=== PATIENT | male | born 1975 | race Caucasian/White ===

== ENCOUNTER 2023-03-24 11:05 | Emergency (ER) | payer OTHER, SELFPAY ==
--- NOTE | 2023-03-24 11:07 | HMH.EDGENADL ---
Discharge Plan Disposition Patient Disposition: Home, Self-Care Prescriptions Prescriptions: New amoxicillin-pot clavulanate 875-125 mg tablet 1 tab PO BID 10 Days Qty: 20 0RF Referrals Follow up/Referrals: Dre Wade MD [Primary Care Provider] - See instructions Activity Restrictions/Add. Instructions Additional Instructions/Restrictions: It imperative that you follow-up with a dentist because you have multiple teeth that need to be extracted that are the source of your infections. Clinical Impressions Clinical Impression: Infected dental caries, Cellulitis of face Discharge ED Provider: Ronaldo Murphy General Adult HPI General Chief complaint: Dental/Oral Stated complaint: Mouth pain w/inflammation Time Seen by Provider: 03/24/23 11:07 History of Present Illness HPI narrative: 47-year-old male presenting with dental pain and facial swelling this is been going on for a few days no fevers or chills patient has known dental caries that are extensive and he has not followed up with dentist and does not yet have a dental appointment. Related Data Previous Rx's Medication Instructions Recorded amoxicillin 875 mg-potassium 1 tab PO BID 10 days #20 tabs 03/24/23 clavulanate 125 mg tablet Allergies Allergy/AdvReac Type Severity Reaction Status Date / Time No Known Allergies Allergy Unverified 10/06/17 14:[address] [facility] Disclaimer: The information contained in this section may have been updated after the patient was seen, as this information can be updated by other users. Social History Smoking Status: Never smoker alcohol intake: never current occupational status: other Travel in the last 8 weeks: None ROS Obtained: Yes All systems reviewed & no additional complaints except as documented Physical Exam General General appearance: alert ENT ENT exam: Present other (Extensive dental caries and necrosis with some overlying cellulitis no obvious abscess there is some soft tissue swelling on the maxillary area of the soft tissue surrounding this facial area) Respiratory Respiratory exam: Present normal lung sounds bilaterally; Absent respiratory distress Cardiovascular Cardiovascular exam: Present regular rate; Absent tachycardia Neurological Exam Neurological exam: Present alert and oriented X3 Medical Decision Making Srinath Inquiry Pt receiving controlled substance: No Vital Signs: 03/24/23 11:16 Temperature 97.8 F Temperature Source Oral Pulse Rate [Left Radial] 95 H Respiratory Rate 16 Blood Pressure [Right Arm] 150/99 H Blood Pressure Mean [Right Arm] 116 02 Sat by Pulse Oximetry 99 Oxygen Delivery Method Room Air Orders (Tests/Meds): ED MEDICATIONS Discontinued Medications Generic Name Dose Route Start Last Admin Trade Name Alpesh PRN Reason Stop Dose Admin Amoxicillin/Clavulanate Potassium 2 each 03/24/23 11:24 Amoxicillin/Pot Clavulan 500mg Tablet PO 03/24/23 11:25 ONCE ONE Lactated Ringer's 1,000 mls @ 999 mls/hr 03/24/23 11:30 Lactated Ringer's 1000 Ml Bag IV 03/24/23 12:30 .Q1H1M [facility] Medical Decision Narrative: 47-year-old male presenting with dental caries that are extensive needing multiple teeth extracted in the near future likely has a periapical abscess but I cannot get a Panorex here we will make a clinical diagnosis of a infection likely has. We will abscess with surrounding facial cellulitis clinically first dose of Augmentin given here and a prescription has been prescribed to his pharmacy has been advised to strongly follow-up with his dentist as he needs extensive dental extractions he understands this and he was discharged in stable condition. Critical Care Time Critical Care Time Critical Care Time: No Attestation: On , the high probability of a clinically significant, sudden or life threatening deterioration of the following system(s) required my full and direct attention, intervention and personal anali
[2023-03-24 11:16] VITALS: BP 150/99; PULSE 95; RESP 16; TEMP 36.6; O2SAT 99; BMI 22.7
[2023-03-24 11:34] VITALS: BP 144/99; PULSE 97; RESP 20; TEMP 36.6; O2SAT 99
== END 2023-03-24 11:34 | disposition home or self-care (01) ==
PROVIDERS: Emergency Provider Student in an Organized Health Care Education/Training Program; PCP Family Medicine
DX: L03.211 Cellulitis of face (principal)
CPT/HCPCS: 96360; 99284

== ENCOUNTER 2023-06-02 15:23 | Observation (INO) | payer MEDICARE, OTHER, SELFPAY ==
[2023-06-02] VITALS (9 sets, daily range): BP systolic 105–142; BP diastolic 56–87; PULSE 60–83; RESP 14–20; TEMP 36.5–36.9; O2SAT 96–100; BMI 21.1; BMI 19.9
--- NOTE | 2023-06-02 16:06 | CT_ITS ---
PROCEDURE INFORMATION: Exam: CT Right Upper Extremity With Contrast, Forearm Exam date and time: 06/02/2023 5:06 PM Age: 47 years old Clinical indication: Other: Abscess; Additional info: Dorsal abscess, diffuse edema and erthema, abscess in forearm TECHNIQUE: Imaging protocol: Computed tomography of the right upper extremity with contrast. Exam focused on the forearm. Radiation optimization: All CT scans at this facility use at least one of these dose optimization techniques: automated exposure control; mA and/or kV adjustment per patient size (includes targeted exams where dose is matched to clinical indication); or iterative reconstruction. Contrast material: ISOVUE; Contrast volume: 75 ml; Contrast route: IV; REPORTING DATA: Count of CT and Cardiac NM exams in prior 12 months: This patient has received 0 known CTs and 0 known cardiac nuclear medicine studies in the 12 months prior to the current study. COMPARISON: No relevant prior studies available. FINDINGS: Bones/joints: Normal. No acute fracture or dislocation. Soft tissues: Irregularly marginated 3.9 x 2.2 x 1.4 cm area of probable phlegmon and developing abscess radial aspect of the distal forearm with surrounding cellulitis. No soft tissue gas. Diffuse edematous infiltration subcutaneous fat elsewhere in the forearm extending into the wrist and hand. Some of this may be passive edema and some may be additional cellulitis. IMPRESSION: 1. Irregularly marginated 3.9 x 2.2 x 1.4 cm area of probable phlegmon and developing abscess centered in subcutaneous fat radial aspect of the distal forearm with surrounding cellulitis. No soft tissue gas. 2. Diffuse edematous infiltration subcutaneous fat elsewhere in the forearm extending into the wrist and hand. Some of this may be passive edema and some may be additional cellulitis.
--- NOTE | 2023-06-02 16:13 | PC.NURSE ---
[facility] pharmacy paged for Vanc dosing. They will put vanc order in for 1gm IV once.
--- NOTE | 2023-06-02 16:27 | ED_ITS ---
Discharge Plan Disposition Patient Disposition: Admitted Condition: Good Discharge ED Provider: Jas Lobato General Adult HPI General Chief complaint: Skin/Abscess/Foreign Body Stated complaint: right hand bite, bleeding and has puss coming out Time Seen by Provider: 06/02/23 16:00 Mode of Arrival: Ambulatory Source of Information: Patient Limitations: No Limitations Description of Symptoms (Recalled from ER Triage Doc. by RN): Pt c/o pain and drainage from right forearm wound that started a couple days ago . Right distal forearm has notable errythemia and clear drainage noted. No streaking present. Pt denies fevers, soa, chest pain, dizziness, chills, or N/V/D. History of Present Illness HPI narrative: Patient is a 47-year-old male with past medical history of IV drug use (last use 1 week ago) who presents emergency department for evaluation of right arm swelling. History is obtained by patient at bedside. Patient states he got bit by a spider on his forearm, he normally injections before meals and is adamant that he did not inject at the site. Over the last 48 to 72 hours he has had pr ogressive swelling, spontaneous rupture of the swelling on his forearm. However he has diffuse swelling between his elbow and wrist, overlying erythema. He also has a past medical history of previous CVA with right hand contracture. He states that his right hand mobility is at his baseline. Denies chest pain, shortness of breath, other acute complaints at this time. Related Data Home Medications Medication Instructions Recorded Confirmed No Known Home Medications 06/02/23 06/02/23 Allergies Allergy/AdvReac Type Severity Reaction Status Date / Time No Known Allergies Allergy Unverified 10/06/17 14:04 [facility] Disclaimer: The information contained in this section may have been updated after the patient was seen, as this information can be updated by other users. Medical History (Updated 06/02/23 @ 22:38 by Marc Dangelo APRN) CVA (cerebral vascular accident) Social History (Updated 03/24/23 @ 11:28 by Ronaldo Murphy MD) Smoking Status: Unknown if ever smoked alcohol intake: never current occupational status: other Travel in the last 8 weeks: None ROS Obtained: Yes Systems reviewed as appropriate & no additional complaints except as documented Physical Exam General General appearance: alert and in no apparent distress Head Head exam: atraumatic and normocephalic Eye Eye exam: Present PERRL and EOMI ENT ENT exam: Present mucous membranes moist Neck Neck exam: Present normal inspection Chest Chest inspection: Present normal inspection and symmetric chest wall rise Respiratory Respiratory exam: Present normal lung sounds bilaterally; Absent respiratory distress Cardiovascular Cardiovascular exam: Present regular rate and normal rhythm Abdominal Exam Abdominal exam: Present soft; Absent tenderness Extremities Exam Extremities exam: Present other (Circumferential swelling and erythema about the right forearm, palpable right radial pulse. Contracture of the right hand. There is a area of fluctuance over the dorsal forearm with oozing of purulence. Capillary refill of right digits preserved..) Neurological Exam Neurological exam: Present alert Psychiatric Psychiatric exam: Present normal affect Skin Skin exam: Present warm and dry Medical Decision Making Srinath Inquiry Pt receiving controlled substance: No Vital Signs: 06/02/23 15:24 06/02/23 19:00 06/02/23 19:30 Temperature 98.4 F Temperature Source Oral Pulse Rate 62 60 Pulse Rate [Right Radial] 83 Respiratory Rate 14 18 18 Blood Pressure 121/66 116/68 Blood Pressure [Right Radial Artery] 142/87 H Blood Pressure Mean 89 87 Blood Pressure Mean [Right Radial Artery] 105 Blood Pressure Source Blood Pressure Source [Right Radial Artery] Automatic Cuff Blood Pressure Position Blood Pressure Position [Right Radial Artery] Sitting 02 Sat by Pulse Oximetry 99 100 99 Oxygen Delivery Method Room Air 06/02/23 20:00 06/02/23 20:30 06/02/23 21:00 Temperature Temperature Source Pulse Rate 64 62 60 Pulse Rate [Right Radial] Respiratory Rate 20 16 18 Blood Pressure 116/70 112/63 105/56 L Blood Pressure [Right Radial Artery] Blood Pressure Mean 84 84 72 Blood Pressure Mean [Right Radial Artery] Blood Pressure Source Blood Pressure Source [Right Radial Artery] Blood Pressure Position Blood Pressure Position [Right Radial Artery] 02 Sat by Pulse Oximetry 100 98 97 Oxygen Delivery Method 06/02/23 21:30 06/02/23 22:33 06/02/23 22:34 Temperature 97.7 F Temperature Source Oral Pulse Rate 63 Pulse Rate [Right Radial] 70 Respiratory Rate 16 17 Blood Pressure 113/57 L Blood Pressure [Right Radial Artery] 115/71 Blood Pressure Mean 81 Blood Pressure Mean [Right Radial Artery] 85 Blood Pressure Source Blood Pressure Source [Right Radial Artery] Automatic Cuff Blood Pressure Position Blood Pressure Position [Right Radial Artery] 02 Sat by Pulse Oximetry 99 96 Oxygen Delivery Method Room Air Room Air 06/02/23 22:34 Temperature 98.2 F Temperature Source Oral Pulse Rate 79 Pulse Rate [Right Radial] Respiratory Rate 19 Blood Pressure 110/75 Blood Pressure [Right Radial Artery] Blood Pressure Mean Blood Pressure Mean [Right Radial Artery] Blood Pressure Source Automatic Cuff Blood Pressure Source [Right Radial Artery] Blood Pressure Position Sitting Blood Pressure Position [Right Radial Artery] 02 Sat by Pulse Oximetry Oxygen Delivery Method Room Air Lab Data Lab Results 06/02/23 16:19: Sodium 134 L, Potassium 3.9, Chloride 98, Carbon Dioxide 30, Anion Gap 9.9, BUN 10, Creatinine 0.50 L, Estimated Creat Clear 158, Estimated GFR 178, Est GFR ( Amer) 216, Glucose 107 H, Calcium 9.1, Total Bilirubin 0.3, AST 35, ALT 42, Alkaline Phosphatase 101, C-Reactive Protein 46.7 H, Total Protein 6.6, Albumin 3.4 L, Globulin 3.2, Albumin/Globulin Ratio 1.1 06/02/23 18:06: WBC 9.6, RBC 4.47 L, Hgb 12.6 L, Hct 39.4 L, MCV 88.1, MCH 28.3, MCHC 32.1, RDW 13.5, Plt Count 251, MPV 8.4, Neut % (Auto) 66.8, Lymph % (Auto) 19.3, [place] % (Auto) 6.7, Eos % (Auto) 6.8, Baso % (Auto) 0.4, Neut # (Auto) 6.4, Lymph # (Auto) 1.9, [place] # (Auto) 0.6, Eos # (Auto) 0.7 H, Baso # (Auto) 0.0, ESR 41 H 06/02/23 18:06 06/02/23 16:19 Orders (Tests/Meds): ED MEDICATIONS Generic Name Dose Route Start Last Admin Trade Name Freq PRN Reason Stop Dose Admin Acetaminophen 650 mg 06/02/23 22:01 Acetaminophen 325mg Tab PO 07/02/23 22:00 Q4HP PRN Fever or Mild Pain (1-3) Al Hydrox/Mg Hydrox/Simethicone 30 ml 06/02/23 22:01 Aluminum/Magnesium/Simethicone 30ml Udc PO 07/02/23 22:00 QIDP PRN Dyspepsia Enoxaparin Sodium 40 mg 06/03/23 09:00 Enoxaparin 40mg/0.4ml Syringe SQ 07/03/23 08:59 DAILY JUAN PABLO Piperacillin Sod/Tazobactam 100 mls @ 200 mls/hr 06/02/23 22:15 06/02/23 22:33 Sod 4.5 gm/ Sodium Chloride IV 06/12/23 22:14 200 mls/hr Q8H JUAN PABLO Administration Vancomycin HCl 750 mg/ Sodium 250 mls @ 250 mls/hr 06/03/23 00:00 Chloride IV 06/13/23 00:00 Q8H JUAN PABLO Miscellaneous 1 each 06/02/23 16:15 06/02/23 18:12 Vancomycin Consult Request NOTAPPLIC 07/02/23 16:14 Not Given CONSULT PHARMACY JUAN PABLO Nicotine 21 mg 06/02/23 22:01 Nicotine 21mg/24hr Patch TD 07/02/23 22:00 DAILYP PRN Nicotine Cravings Pantoprazole Sodium 40 mg 06/03/23 09:00 Pantoprazole 40mg Tablet PO 07/03/23 08:59 DAILY JUAN PABLO Sodium Chloride 10 ml 06/02/23 17:13 06/02/23 17:15 Sodium Chloride 0.9% 10ml Syr (Rad Only) IV 07/02/23 17:12 10 ml NEEDED PRN Administration Maintain IV Site Discontinued Medications Generic Name Dose Route Start Last Admin Trade Name Freq PRN Reason Stop Dose Admin Acetaminophen 1,000 mg 06/02/23 16:06 06/02/23 18:51 Acetaminophen 1,000mg/100ml Vial IV 06/02/23 16:07 1,000 mg ONCE ONE Administration Piperacillin Sod/Tazobactam 50 mls @ 100 mls/hr 06/02/23 16:09 06/02/23 18:17 Sod 3.375 gm/ Sodium Chloride IV 06/02/23 16:38 100 mls/hr ONCE ONE Administration Vancomycin HCl 1,000 mg/ 250 mls @ 125 mls/hr 06/02/23 16:15 06/02/23 19:20 Sodium Chloride IV 06/02/23 18:14 125 mls/hr ONCE ONE Administration Iopamidol 75 ml 06/02/23 17:13 06/02/23 17:14 Iopamidol-370 (76%);100ml Bottle IV 06/02/23 17:14 75 ml ONCE ONE Administration ORDERS Category Date Time Status CT forearm RT w con Stat Cat Scan 06/02/23 16:06 Completed CRP [C-Reactive Protein] Stat Lab 06/02/23 16:19 Completed Complete Blood Count Auto Diff AMLAB Lab 06/03/23 06:00 Ordered Complete Blood Count Auto Diff Stat Lab 06/02/23 18:06 Completed Comprehensive Metabolic Panel AMLAB Lab 06/03/23 06:00 Ordered Comprehensive Metabolic Panel Stat Lab 06/02/23 16:19 Completed Erythrocyte Sedimentation Rate Stat Lab 06/02/23 18:06 Completed Prothrombin Time INR AMLAB Lab 06/03/23 06:00 Ordered Blood Culture Stat Micro 06/02/23 18:06 Received Wound Culture and Gram Stain Routine Micro 06/02/23 22:04 Ordered Medical Decision Narrative: In summary patient is a 47-year-old male with past medical history described above who presents the emergency department for evaluation of forearm swelling and redness. Patient is hemodynamically stable nontoxic-appearing upon arrival, afebrile. Differential diagnosis includes abscess with superimposed cellulitis, deep space infection of the forearm, among others. Work-up will be conducted with hematologic labs, CT of the right forearm with IV contrast, blood cultures. Initial interventions include broad-spectrum antibiotics with vancomycin and Zosyn. Initial work-up reviewed by me, hematologic labs are nonactionable, nonspecific elevation in inflammatory markers. CT imaging shows phlegmon and developing abscess of the radial forearm. Given the need for prolonged IV antibiotics the case was discussed with hospital medicine they will admit the pa tient their service for continued evaluation at this time. Patient underwent incision and drainage with expression of mucopurulent material with success. Procedures Abscess I/D Site: upper extremity Side (if applicable): right Local Anesthetic: lidocaine 1% Amount of anesthesia used (mL): 8 Technique: incised with #11 blade Amount of fluid expressed (mL): 5 Irrigation: No Packing used?: plain Complications: pain Miscellaneous Procedure Procedure Performed: Procedure performed ultrasound IV. Indication with staff unable to obtain IV access in right arm phlegmon. Using real-time ultrasound the right basilic vein was cannulated with a long 18-gauge peripheral IV. Vessel cannulated was patent. Images were not saved to apartment archive. Patient tolerated procedure well. There were no immediate complications. Critical Care Time Critical Care Time Critical Care Time: No Attestation: On 06/02/23, the high probability of a clinically significant, sudden or life threatening deterioration of the following system(s) required my full and direct attention, intervention and personal management. The time I documented below is in addition to time spent performing reported procedures but includes the following listed in this critical care notation.
[2023-06-02 17:09] LABS: Chloride 98 mmol/L (98-107); Potassium 3.9 mmoL/L (3.5-5.1); Sodium 134 mmol/L (136-145)
[2023-06-02 17:12] LABS: Alanine Aminotransferase 42 U/L (12-78); Albumin Level 3.4 g/dl (3.5-5.0); Albumin/Globulin Ratio 1.1 (1.1-1.8); Alkaline Phosphatase 101 U/L (38-126); Anion Gap 9.9 mEq/L (5-15); Aspartate Amino Transferase 35 U/L (17-59); Bilirubin,Total 0.3 mg/dl (0.2-1.3); Blood Urea Nitrogen 10 mg/dl (9-20); Calcium 9.1 mg/dl (8.4-10.2); Carbon Dioxide 30 mmol/L (22.0-30.0); Creatinine Clearance Estimated 158 mL/min (50-200); Estimated Glomerular Filt Rate 178 ml/min (>60); GFR (African American) 216 ML/MIN (>60); Globulin 3.2 g/dL (1.3-3.2); Glucose 107 mg/dl (74-100); Total Protein,Serum 6.6 g/dl (6.3-8.2)
[2023-06-02] MEDS: IOPAMIDOL-370 (76%);100ML BOTTLE 75 ML IV (17:14)
[2023-06-02] MEDS: SODIUM CHLORIDE 0.9% 10ML SYR (RAD ONLY) 10 ML IV (17:15)
[2023-06-02 17:18] LABS: C-Reactive Protein 46.7 mg/L (0-4)
--- NOTE | 2023-06-02 17:22 | PC.NURSE ---
rounded on pt nothing needed call light at bs
--- NOTE | 2023-06-02 18:02 | PC.NURSE ---
and otilia at
[2023-06-02] MEDS: PIPERACILLIN/TAZO 3.375 GM in 0.9 % SODIUM CHLORIDE 50 ML IV (18:17)
[2023-06-02 18:27] LABS: Basophils % 0.4 % (0.1-2.0); Eosinophils # 0.7 K/mm3 (0.0-0.4); Eosinophils % 6.8 % (0.1-12.0); Hematocrit 39.4 % (42.0-52.0); Hemoglobin 12.6 g/dL (14.1-18.0); Lymphocytes # 1.9 K/mm3 (0.7-4.5); Lymphocytes % 19.3 % (10-50); Mean Corpuscular HGB Conc 32.1 g/dL (31.8-35.4); Mean Corpuscular Hemoglobin 28.3 pg (27.0-31.2); Mean Corpuscular Volume 88.1 fl (80-94); Mean Platelet Volume 8.4 fl (7.4-10.4); Monocytes # 0.6 K/mm3 (0.1-1.0); Monocytes % 6.7 % (1.7-9.3); Neutrophils # 6.4 K/mm3 (1.8-7.8); Neutrophils % 66.8 % (37.0-80.0); Platelet Count 251 K/mm3 (142-424); Red Blood Count 4.47 M/mm3 (4.60-6.20); Red Cell Distribution Width 13.5 % (11.5-17.5); White Blood Count 9.6 K/mm3 (4.8-10.8)
[2023-06-02] MEDS: ACETAMINOPHEN 1,000MG/100ML VIAL 1000 MG IV (18:51)
[2023-06-02 19:08] LABS: Erythrocyte Sedimentation Rate 41 mm/hr (0-15)
[2023-06-02] MEDS: VANCOMYCIN HCL 1,000 MG in 0.9 % SODIUM CHLORIDE 250 ML 125 MG IV (19:20)
--- NOTE | 2023-06-02 20:03 | PC.NURSE ---
called house for food request
--- NOTE | 2023-06-02 22:01 | EXP.HP ---
History of Present Illness *Admission Date: 06/02/23 *Reason for visit:: Cellulitis upper arm *History of present illness: This is a 47-year-old male with past medical CVA with right hand contracture, limited ROM and history than IV drug use last use 1 week ago, who presents emergency department for evaluation of right arm swelling. History is limited due to patient is poor historian. Suspecting learning disability, patient stated he got bit by a spider on his forearm, he normally inject to the AC area, he stated that he did not inject at that site. Over the last 48 to 72 hours he has had progressive swelling, spontaneous skin rupture on his forearm. However he has diffuse swelling between his elbow and wrist, overlying erythema. Denies chest pain, shortness of breath, other acute complaints at this time. patient aadmitted for further treatment. [facility] Disclaimer: The information contained in this section may have been updated after the patient was seen, as this information can be updated by other users. Medical History (Updated 06/02/23 @ 22:38 by Marc Dangelo APRN) CVA (cerebral vascular accident) Social History (Updated 03/24/23 @ 11:28 by Ronaldo Murphy MD) Smoking Status: Unknown if ever smoked alcohol intake: never current occupational status: other Travel in the last 8 weeks: None Review of Systems Review of Systems Review of systems:: pertinent systems reviewed and negative unless documented below *Musculoskeletal Musculoskeletal: Reports joint swelling and Reports limited range of motion Integumentary/Breasts Skin/Breast: Reports erythema, Reports furuncle, Reports lesions and Reports skin swelling Meds Home Medications and Allergies Home Medications Medication Instructions Recorded Confirmed Type atorvastatin 20 mg tablet 20 mg PO DAILY Cholesterol 06/03/23 06/03/23 History gabapentin 400 mg capsule 400 mg PO TID Pain 06/03/23 06/03/23 History New Prescriptions to Start Prescriptions: Allergies Allergy/AdvReac Type Severity Reaction Status Date / Time No Known Allergies Allergy Unverified 10/06/17 14:04 Exam Data for Last 24 hours Vital signs and Labs for Last 24 Hours: Temp Pulse Resp BP Pulse Ox O2 Del Method 98.4 F 83 14 142/87 H 99 Room Air 06/02/23 15:24 06/02/23 15:24 06/02/23 15:24 06/02/23 15:24 06/02/23 15:24 06/02/23 15:24 Laboratory Results - last 24 hr 06/02/23 16:19: Sodium 134 L, Potassium 3.9, Chloride 98, Carbon Dioxide 30, Anion Gap 9.9, BUN 10, Creatinine 0.50 L, Estimated Creat Clear 158, Estimated GFR 178, Est GFR ( Amer) 216, Glucose 107 H, Calcium 9.1, Total Bilirubin 0.3, AST 35, ALT 42, Alkaline Phosphatase 101, C-Reactive Protein 46.7 H, Total Protein 6.6, Albumin 3.4 L, Globulin 3.2, Albumin/Globulin Ratio 1.1 06/02/23 18:06: WBC 9.6, RBC 4.47 L, Hgb 12.6 L, Hct 39.4 L, MCV 88.1, MCH 28.3, MCHC 32.1, RDW 13.5, Plt Count 251, MPV 8.4, Neut % (Auto) 66.8, Lymph % (Auto) 19.3, [place] % (Auto) 6.7, Eos % (Auto) 6.8, Baso % (Auto) 0.4, Neut # (Auto) 6.4, Lymph # (Auto) 1.9, [place] # (Auto) 0.6, Eos # (Auto) 0.7 H, Baso # (Auto) 0.0, ESR 41 H I & O for Last 24 hours: Intake & Output 05/30/23 05/31/23 06/01/23 06/02/23 23:59 23:59 23:59 23:59 Weight 61.235 kg Constitutional Constitutional: mild distress *Routine HEENT Exam Head: Present normocephalic and atraumatic Eye: Present EOMI and PERRL ENT: Present mucous membranes moist *Routine Neck Exam Neck: Present supple, full ROM and trachea midline Routine Chest/Breast/Axilla Exam Comments: no lymphadenopathy *Routine Respiratory Exam Respiratory: Present normal respiratory effort, able to speak in complete sentences and symmetric chest movement *Routine Cardiovascular Exam Cardiovascular: Present RRR, Normal S1 and Normal S2 *Routine Abdominal Exam Abdominal: Present soft and normoactive bowel sounds *Routine Rectal Exam Rectal:: other *Routine Genitalia Exam Genitalia:: other *Routine Extremities Exam Extremities: Present edema, pulses intact, normal capillary refill and joint swelling *Routine Skin Exam Skin: Present erythema, warm and wounds Comments: Swelling and redness and discoloration in the right arm. Scant amount of serosanguineous secretions. *Routine Neurological Exam Neurological: Present alert, oriented X3, normal reflexes, moving all extremities and normal tone Routine Psychiatric Exam Psychiatric: Present cooperative and anxious H&P: Result Imaging and Cardiology CT right arm : Status: image reviewed by me and final report Assessment and Plan *Assessment and plan (1) Phlegmon: Status: Acute Category: Medical Code(s): L02.91 - Cutaneous abscess, unspecified (2) Cellulitis and abscess of other specified site: Status: Acute Category: Medical Code(s): L03.818 - Cellulitis of other sites; L02.818 - Cutaneous abscess of other sites (3) IVDU (intravenous drug user): Status: Acute Category: Social Hx Code(s): F19.90 - Other psychoactive substance use, unspecified, uncomplicated (4) Hypertension: Status: Acute Qualifiers: Hypertension type: unspecified Qualified Code(s): I10 - Essential (primary) hypertension Category: Medical Code(s): I10 - Essential (primary) hypertension Plan This is a 47-year-old male with past medical history of CVA with arm contracture with limited ROM, IV drug user that stated he got bite by a spider on his forearm, he denied using that spot for injection. Over the last 48 to 72 hours he has had progressive swelling, spontaneous skin rupture on his forearm. Also, he has diffuse swelling between his elbow and wrist, overlying erythema. Patient denies fever. Initial ER evaluation included a CT of the right upper extremity, concerning of cellulitis, with 3.9 x 2.2 x 1.4 cm phlegmon and developing abscess. Labs were reviewed. Grossly unremarkable. Patient was placed on vancomycin and Zosyn. Blood culture was pending, wound culture wound cultures pending, will attempt to I&D, however, does not appear to have fluid collection. Findings were discussed with the ER doctor and decision was made to admit the patient for further treatment and/or more antibiotic. Plan as follows: -Phlegmon with cellulitis and abscess of the right upper arm: Patient referred secondary to spider bite, denies any use of IV drugs on that side. However, this cannot be ruled 100%. admitted for medical surgical services, planning to do I&D. Obtain consent. blood and wound culture pending. Pain management with Tylenol. Continue on Zosyn 4.5g every 8 IV. Vital signs per unit protocol. regular diet. Continue to monitor. -History of IV drug abuse: Avoid use of opioid. Patient is not ready to detox or rehabilitation program. does not expressed interest at this point. -Stage I hypertension: Continue to monitor, we will attempt to do nonpharmacological management at this point Lovenox for DVT prophylaxis, on Protonix for GI bleed prophylaxis. Full code. Plan discussed with the patient is in agreement with plan admission. Further recommendation will be implemented based on the results of the pending test.
--- NOTE | 2023-06-02 22:14 | PC.NURSE ---
Report given to Zaynab Rodriguez RN.
--- NOTE | 2023-06-02 22:30 | PC.NURSE ---
pt arrived to floor at this time
[2023-06-02] MEDS: PIPERACILLIN/TAZO 4.5 GM in 0.9 % SODIUM CHLORIDE 100 ML IV (22:33)
--- NOTE | 2023-06-03 00:23 | PC.NURSE ---
@ 0015 ED, (ABNER) AND ED, RN AT BEDSIDE FOR I&D PROCEDURE. THIS RN COLLECTED CONSENT PRIOR TO ED ARRIVAL TO UNIT AND MADE ED, RN AWARE OF CONSENT AND PLACED CONSENT WITH MD TO SIGN. SEE MD PROCEDURE NOTE FOR FULL DETAILS OF PROCEDURE. PT TOLERATED WELL AND CULTURE SENT.
--- NOTE | 2023-06-03 00:33 | PC.NURSE ---
@ 0033 THIS RN CALLED [facility] TO VERIFY AND MIX VANC ORDER CORRECTLY. NENA FROM [facility] VERIFIED DOSE AND PROPER ADMINISTRATION WITH THIS RN.
[2023-06-03] MEDS: VANCOMYCIN HCL 750 MG in 0.9 % SODIUM CHLORIDE 250 ML 250 MG IV (00:48)
[2023-06-03 04:00] VITALS: BP 124/68; PULSE 69; RESP 16; TEMP 36.6; O2SAT 98; BMI 19.9
[2023-06-03] MEDS: PIPERACILLIN/TAZO 4.5 GM in 0.9 % SODIUM CHLORIDE 100 ML IV (05:57)
--- NOTE | 2023-06-03 06:21 | PC.NURSE ---
PT HAS REFUSED TO HAVE HIS LABS DRAWN X2; THIS RN ATTEMPTED TO EXPLAIN TO THE PT THE IMPORTANCE OF MONITORING HIS LABS SINCE HE HAS AN INFECTION. PT STATES HE ISN'T GETTING STUCK ANYMORE FOR BLOOD WORK.
--- NOTE | 2023-06-03 07:52 | HMH.PHAINT1 ---
Pharmacy Intervention Comments: Medication history complete, medications verified with fill history and patient. - Arabella Patel, PharmD Candidate 2023
--- NOTE | 2023-06-03 07:54 | P.CONPHA_ITS ---
Pharmacy Consult Date: 06/03/23 Time: 07:54 Referring provider: DR. LEVINE Reason for Consult:: VANCOMYCIN DOSING Allergies Allergy/AdvReac Type Severity Reaction Status Date / Time No Known Allergies Allergy Unverified 10/06/17 14:04 Home Medications Medication Instructions Recorded Confirmed Type atorvastatin 20 mg tablet 20 mg PO DAILY Cholesterol 06/03/23 06/03/23 History gabapentin 400 mg capsule 400 mg PO TID Pain 06/03/23 06/03/23 History New Prescriptions to Start Prescriptions: Height: 1.7 m Weight: 57.516 kg Laboratory Results:: Laboratory Results - last 24 hr 06/02/23 16:19: Sodium 134 L, Potassium 3.9, Chloride 98, Carbon Dioxide 30, Anion Gap 9.9, BUN 10, Creatinine 0.50 L, Estimated Creat Clear 158, Estimated GFR 178, Est GFR ( Amer) 216, Glucose 107 H, Calcium 9.1, Total Bilirubin 0.3, AST 35, ALT 42, Alkaline Phosphatase 101, C-Reactive Protein 46.7 H, Total Protein 6.6, Albumin 3.4 L, Globulin 3.2, Albumin/Globulin Ratio 1.1 06/02/23 18:06: WBC 9.6, RBC 4.47 L, Hgb 12.6 L, Hct 39.4 L, MCV 88.1, MCH 28.3, MCHC 32.1, RDW 13.5, Plt Count 251, MPV 8.4, Neut % (Auto) 66.8, Lymph % (Auto) 19.3, [place] % (Auto) 6.7, Eos % (Auto) 6.8, Baso % (Auto) 0.4, Neut # (Auto) 6.4, Lymph # (Auto) 1.9, [place] # (Auto) 0.6, Eos # (Auto) 0.7 H, Baso # (Auto) 0.0, ESR 41 H Medical History: Medical History (Updated 06/02/23 @ 22:38 by Marc Dangelo APRN) CVA (cerebral vascular accident) Assessment and Plan Assessment and plan all Dx Assessment and Plan for all problems:: Pharmacokinetic dosing service Objective: Patient: Floor: Age: 47 yo Serum creatinine: 0.50 mg/dL Height: 66.9 Inches Weight (kg): 57.5 Assessment: IBW (kg): 65.87 Dosing wt(kg): 57.5 Estimated Creatinine clearance (ml/min): 130 Clearance limited to 130 ml/min to reduce risk of overdosing. CRCL method: Cockcroft and Gault using ibw(default). Drug selected: Vancomycin Loading dose (mg): Vd (liters): 46.0 (factor used: 0.8 L/kg) Lenny (hr-1): 0.112 Half life (hrs): 6.19 CLvanco=?? 5.152 L/hr Recommended dose: 1000 mg Interval: 8 hrs Infusion time (hrs): 2.0 Predicted peak (mcg/mL): 32.9 Predicted trough (mcg/mL): 16.80 Total body weight is being used for vancomycin dosing. Recommendations: Give Vancomycin 1000 mg q 8 hrs with an expected Cpeak of 32.9 mcg/ml and an expected Ctrough of 16.80 mcg/ml AUC 0-24 /JOANIE Data: JOANIE 0.5 mcg/mL:?? AUC/JOANIE:? 1164.6 JOANIE 1.0 mcg/mL:?? AUC/JOANEI:? 582.3 --------- JOANIE 1.5 mcg/mL:?? AUC/JOANIE:? 388.2 JOANIE 2.0 mcg/mL:?? AUC/JOANIE:? 291.1 Thank you for the consult, will continue to follow. -STELLA WITT, LEXID
[2023-06-03 07:55] VITALS: BP 107/59; PULSE 72; RESP 18; TEMP 36.7; O2SAT 98
[2023-06-03] MEDS: VANCOMYCIN HCL 1,000 MG in 0.9 % SODIUM CHLORIDE 250 ML 125 MG IV ×2 (08:18→16:03)
[2023-06-03] MEDS: PANTOPRAZOLE 40MG TABLET 40 MG PO (08:23)
[2023-06-03] MEDS: ENOXAPARIN 40MG/0.4ML SYRINGE 40 MG SQ (08:23)
--- NOTE | 2023-06-03 11:16 | SW/DCPLANNER ---
I spoke with this patient regarding plans once medically stable for discharge. I attempted to engage in conversation with this patient regarding inpatient/outpatient drug and alcohol resources. Patient is not interested in any resources at this time. Patient answered all questions with one word responses. I did inform patient about [facility] resource list that he will take home in his folder. I also informed patient of my name and number for any future needs. Patient has no further needs/questions at this time. Per Dr Murphy patient will discharge tomorrow. I will continue to follow up with this patient during his hospital admission.
--- NOTE | 2023-06-03 11:43 | EXP.PN ---
Subjective *Date: 06/03/23 *Time: 16:35 Interval history: No acute events overnight. Less swelling and pain of the R forearm. Exam Data for Last 24 hours Vital signs and Labs for Last 24 Hours: Temp Pulse Resp BP Pulse Ox O2 Del Method 98.0 F 72 18 107/59 L 98 Room Air 06/03/23 07:55 06/03/23 07:55 06/03/23 07:55 06/03/23 07:55 06/03/23 07:55 06/03/23 07:55 Laboratory Results - last 24 hr 06/02/23 16:19: Sodium 134 L, Potassium 3.9, Chloride 98, Carbon Dioxide 30, Anion Gap 9.9, BUN 10, Creatinine 0.50 L, Estimated Creat Clear 158, Estimated GFR 178, Est GFR ( Amer) 216, Glucose 107 H, Calcium 9.1, Total Bilirubin 0.3, AST 35, ALT 42, Alkaline Phosphatase 101, C-Reactive Protein 46.7 H, Total Protein 6.6, Albumin 3.4 L, Globulin 3.2, Albumin/Globulin Ratio 1.1 06/02/23 18:06: WBC 9.6, RBC 4.47 L, Hgb 12.6 L, Hct 39.4 L, MCV 88.1, MCH 28.3, MCHC 32.1, RDW 13.5, Plt Count 251, MPV 8.4, Neut % (Auto) 66.8, Lymph % (Auto) 19.3, [place] % (Auto) 6.7, Eos % (Auto) 6.8, Baso % (Auto) 0.4, Neut # (Auto) 6.4, Lymph # (Auto) 1.9, [place] # (Auto) 0.6, Eos # (Auto) 0.7 H, Baso # (Auto) 0.0, ESR 41 H I & O for Last 24 hours: Intake & Output 05/31/23 06/01/23 06/02/23 06/03/23 23:59 23:59 23:59 23:59 Intake Total 480 / 480 Output Total 0 / 0 Balance 480 / 480 Weight 57.516 kg 57.516 kg Microbiology Reports for the Last 24 Hours: Microbiology 06/02/23 00:15 Arm,Right Gram Stain - Final Constitutional Constitutional: no acute distress *Routine HEENT Exam Head: Present normocephalic Eye: Present EOMI and PERRL ENT: Present mucous membranes moist *Routine Neck Exam Neck: Present supple; Absent lymphadenopathy *Routine Respiratory Exam Respiratory: Present CTA bilaterally *Routine Cardiovascular Exam Cardiovascular: Present RRR *Routine Abdominal Exam Abdominal: Present soft and normoactive bowel sounds; Absent tenderness *Routine Extremities Exam Comments: Dorsal aspect of R forearm with circumferential ttp, swelling and erythema; sparing the wrist and elbow. Incision without active drainage. *Routine Skin Exam Skin: Present warm; Absent rash *Routine Neurological Exam Neurological: Present alert and oriented X3 Assessment and Plan *Assessment and plan (1) Phlegmon: Status: Acute Category: Medical Code(s): L02.91 - Cutaneous abscess, unspecified (2) Cellulitis and abscess of other specified site: Status: Acute Category: Medical Code(s): L03.818 - Cellulitis of other sites; L02.818 - Cutaneous abscess of other sites (3) IVDU (intravenous drug user): Status: Acute Category: Social Hx Code(s): F19.90 - Other psychoactive substance use, unspecified, uncomplicated (4) Hypertension: Status: Acute Qualifiers: Hypertension type: unspecified Qualified Code(s): I10 - Essential (primary) hypertension Category: Medical Code(s): I10 - Essential (primary) hypertension Plan #cellulitis of the right forearm #h/o iv drug use #hypertension #h/o cva The patient had incision and drainage of R forearm and ~5mL purulent fluid was expressed. blood and wound cultures are pending. Pain is in control with Tylenol. Stop Zosyn 4.5g every 8 IV. Continue Vancomycin, pharmacy to dose. Regular diet Lovenox for DVT prophylaxis Full code. anticipate d/c to home in 1 day
[2023-06-03 13:19] LABS: Basophils % 0.5 % (0.1-2.0); Eosinophils # 0.5 K/mm3 (0.0-0.4); Eosinophils % 7.6 % (0.1-12.0); Hematocrit 38.8 % (42.0-52.0); Hemoglobin 12.7 g/dL (14.1-18.0); Lymphocytes # 1.4 K/mm3 (0.7-4.5); Lymphocytes % 19.8 % (10-50); Mean Corpuscular HGB Conc 32.7 g/dL (31.8-35.4); Mean Corpuscular Volume 88.7 fl (80-94); Mean Platelet Volume 8.4 fl (7.4-10.4); Monocytes # 0.4 K/mm3 (0.1-1.0); Monocytes % 6.3 % (1.7-9.3); Neutrophils # 4.5 K/mm3 (1.8-7.8); Neutrophils % 65.8 % (37.0-80.0); Platelet Count 266 K/mm3 (142-424); Red Blood Count 4.38 M/mm3 (4.60-6.20); Red Cell Distribution Width 13.5 % (11.5-17.5); White Blood Count 6.8 K/mm3 (4.8-10.8)
[2023-06-03] MEDS: GABAPENTIN 400MG CAPSULE 400 MG PO ×2 (13:54→20:45)
[2023-06-03 13:58] LABS: Chloride 102 mmol/L (98-107); Sodium 137 mmol/L (136-145)
[2023-06-03 14:01] LABS: Alanine Aminotransferase 38 U/L (12-78); Albumin Level 3.2 g/dl (3.5-5.0); Alkaline Phosphatase 101 U/L (38-126); Aspartate Amino Transferase 40 U/L (17-59); Bilirubin,Total 0.2 mg/dl (0.2-1.3); Blood Urea Nitrogen 11 mg/dl (9-20); Calcium 8.8 mg/dl (8.4-10.2); Carbon Dioxide 27 mmol/L (22.0-30.0); Creatinine Clearance Estimated 124 mL/min (50-200); Estimated Glomerular Filt Rate 144 ml/min (>60); GFR (African American) 175 ML/MIN (>60); Globulin 3.3 g/dL (1.3-3.2); Glucose 132 mg/dl (74-100); Total Protein,Serum 6.5 g/dl (6.3-8.2)
[2023-06-03 14:03] LABS: INR 1.11 (0.9-1.1); Prothrombin Time 11.9 seconds (10.1-12.5)
[2023-06-03 15:21] VITALS: BP 117/83; PULSE 77; RESP 16; TEMP 36.7; O2SAT 99
--- NOTE | 2023-06-03 17:50 | PC.NURSE ---
A&OX4. PT HAS TOLERATED RA WELL THROUGHOUT SHIFT. NO COUGH NOTED. RESPIRATIONS REGULAR AND UNLABORED. CLEAR LUNG SOUNDS NOTED THROUGHOUT. PERRLA. +2 PULSES NOTED THROUGHOUT. HAND PYROTECHNIC MIXER EQUAL. NO EDEMA NOTED. ACTIVE BOWEL SOUNDS HEARD IN ALL 4 QUADRANTS. SOFT AND NONTENDER ABDOMEN. PT VOIDS PER TOILET INDEPENDENTLY. NO PAIN REPORTED THUS FAR. PT HAS RECEIVED VANC TWICE THIS SHIFT AND TOLERATED WELL. INCISION NOTED TO R FOREARM DRESSING OPEN TO AIR. CALL LIGHT WITHIN REACH. BED IN LOWEST POSITION. VSS.
--- NOTE | 2023-06-03 18:20 | PC.NURSE ---
Addendum entered by Louisa Rubin RN 06/03/23 18:37: DRY TO DRY AND START TOMORROW PER DR GARY Original Note: CALLED DR GARY TO DISCUSS PT'S DRESSING. HE STATED TO PACK WITH PACKING STRIPS WET TO DRY AND LEAVE OPEN TO AIR.
[2023-06-03 20:00] VITALS: BP 136/77; PULSE 65; RESP 18; TEMP 36.7; O2SAT 98; O2SAT 99
[2023-06-03] MEDS: ACETAMINOPHEN 325MG TAB 650 MG PO (20:44)
[2023-06-03] MEDS: ATORVASTATIN 20MG TABLET 20 MG PO (20:45)
[2023-06-04] MEDS: VANCOMYCIN HCL 1,000 MG in 0.9 % SODIUM CHLORIDE 250 ML 125 MG IV (00:09)
[2023-06-04 04:00] VITALS: BP 129/73; PULSE 57; RESP 18; TEMP 36.6; O2SAT 99; BMI 20.7
--- NOTE | 2023-06-04 04:05 | PC.NURSE ---
VITAL SIGNS STABLE/AFEBRILE. MEDICATED WITH TYLENOL X 1 FOR PAIN IN RFA AT 2043 AND HAS SLEPT WELL FOR REMAINDER OF THE SHIFT.pACKING IN PLACE, WOUND STAFF [employer]. MILD EDEMA TO RFA. NO S/S OF COMPARTMENT SYNDROME.
--- NOTE | 2023-06-04 05:35 | PC.NURSE ---
refused am labs
[2023-06-04 07:42] VITALS: BP 115/77; PULSE 65; RESP 18; TEMP 37.2; O2SAT 99
[2023-06-04 08:00] LABS: Basophils % 0.5 % (0.1-2.0); Eosinophils # 0.7 K/mm3 (0.0-0.4); Eosinophils % 11.1 % (0.1-12.0); Hematocrit 42.9 % (42.0-52.0); Hemoglobin 13.4 g/dL (14.1-18.0); Lymphocytes # 1.7 K/mm3 (0.7-4.5); Lymphocytes % 28.5 % (10-50); Mean Corpuscular HGB Conc 31.3 g/dL (31.8-35.4); Mean Corpuscular Hemoglobin 28.1 pg (27.0-31.2); Mean Corpuscular Volume 89.9 fl (80-94); Mean Platelet Volume 8.1 fl (7.4-10.4); Monocytes # 0.3 K/mm3 (0.1-1.0); Monocytes % 4.6 % (1.7-9.3); Neutrophils # 3.4 K/mm3 (1.8-7.8); Neutrophils % 55.4 % (37.0-80.0); Platelet Count 270 K/mm3 (142-424); Red Blood Count 4.76 M/mm3 (4.60-6.20); Red Cell Distribution Width 13.5 % (11.5-17.5); White Blood Count 6.1 K/mm3 (4.8-10.8)
[2023-06-04 08:02] LABS: Anion Gap 11.2 mEq/L (5-15); Blood Urea Nitrogen 7 mg/dl (9-20); Calcium 8.5 mg/dl (8.4-10.2); Carbon Dioxide 24 mmol/L (22.0-30.0); Chloride 107 mmol/L (98-107); Creatinine Clearance Estimated 129 mL/min (50-200); Estimated Glomerular Filt Rate 144 ml/min (>60); GFR (African American) 175 ML/MIN (>60); Glucose 169 mg/dl (74-100); Potassium 4.2 mmoL/L (3.5-5.1); Sodium 138 mmol/L (136-145)
[2023-06-04 08:07] LABS: Vancomycin,Trough 9.6 ug/mL (5.0-10.0)
--- NOTE | 2023-06-04 08:30 | P.DS_ITS ---
General Admission date:: 06/02/23 HPI HPI HPI: This is a 47-year-old male with past medical CVA with right hand contracture, limited ROM and history than IV drug use last use 1 week ago, who presents emergency department for evaluation of right arm swelling. History is limited due to patient is poor historian. Suspecting learning disability, patient stated he got bit by a spider on his forearm, he normally inject to the AC area, he stated that he did not inject at that site. Over the last 48 to 72 hours he has had progressive swelling, spontaneous skin rupture on his forearm. However he has diffuse swelling between his elbow and wrist, overlying erythema. Denies chest pain, shortness of breath, other acute complaints at this time. patient aadmitted for further treatment. Hospital Course Hospital Course Hospital Course: #cellulitis of the right forearm #h/o iv drug use #hypertension #h/o cva The patient had incision and drainage of R forearm and ~5mL purulent fluid was expressed. blood and wound cultures are pending. Pain is in control with Tylenol. The patient received Zosyn 4.5g IV TID x 1 day and received iv vancomycin throughout the hospital course. By the day of discharge swelling and pain of the right forearm had significantly subsided. He was provided wound care instructions: wash lightly every day with mild soap and water, repack with wet gauze daily and cover with gauze and bandage tape. He will be discharged on 7 days of amoxicillin and doxycycline and will need to f/u with his pcp in one week. Exam Data for Last 24 hours Vital signs and Labs for Last 24 Hours: Temp Pulse Resp BP Pulse Ox O2 Del Method 98.9 F 65 18 115/77 99 Room Air 06/04/23 07:42 06/04/23 07:42 06/04/23 07:42 06/04/23 07:42 06/04/23 07:42 06/04/23 07:42 Laboratory Results - last 24 hr 06/03/23 13:00: WBC 6.8 D, RBC 4.38 L, Hgb 12.7 L, Hct 38.8 L, MCV 88.7, MCH 29.0, MCHC 32.7, RDW 13.5, Plt Count 266, MPV 8.4, Neut % (Auto) 65.8, Lymph % (Auto) 19.8, [place] % (Auto) 6.3, Eos % (Auto) 7.6, Baso % (Auto) 0.5, Neut # (Auto) 4.5, Lymph # (Auto) 1.4, [place] # (Auto) 0.4, Eos # (Auto) 0.5 H, Baso # (Auto) 0.0, PT 11.9, INR 1.11 H, Sodium 137, Potassium 4.0, Chloride 102, Carbon Dioxide 27, Anion Gap 12.0, BUN 11, Creatinine 0.60 L, Estimated Creat Clear 124, Estimated GFR 144, Est GFR ( Amer) 175, Glucose 132 H D, Calcium 8.8, Total Bilirubin 0.2, AST 40, ALT 38, Alkaline Phosphatase 101, Total Protein 6.5, Albumin 3.2 L, Globulin 3.3 H, Albumin/Globulin Ratio 1.0 L 06/04/23 07:40: WBC 6.1, RBC 4.76, Hgb 13.4 L, Hct 42.9, MCV 89.9, MCH 28.1, MCHC 31.3 L, RDW 13.5, Plt Count 270, MPV 8.1, Neut % (Auto) 55.4, Lymph % (Auto) 28.5, [place] % (Auto) 4.6, Eos % (Auto) 11.1, Baso % (Auto) 0.5, Neut # (Auto) 3.4, Lymph # (Auto) 1.7, [place] # (Auto) 0.3, Eos # (Auto) 0.7 H, Baso # (Auto) 0.0, Sodium 138, Potassium 4.2, Chloride 107, Carbon Dioxide 24, Anion Gap 11.2, BUN 7 L D, Creatinine 0.60 L, Estimated Creat Clear 129, Estimated GFR 144, Est GFR ( Amer) 175, Glucose 169 H D, Calcium 8.5, Vancomycin Trough 9.6 I & O for Last 24 hours: Intake & Output 06/01/23 06/02/23 06/03/23 06/04/23 23:59 23:59 23:59 23:59 Intake Total 2690 / 2690 1210 / 1210 Output Total 2 / 2 500 / 500 Balance 2688 / 2688 710 / 710 Weight 57.516 kg 57.516 kg 59.931 kg Microbiology Reports for the Last 24 Hours: Microbiology 06/02/23 00:15 Arm,Right Gram Stain - Final 06/02/23 00:15 Arm,Right Wound Culture - Preliminary Results Data Completed and Pending Labs on day of discharge: Labs from last 24 hours 06/04/23 06/03/23 07:40 13:00 WBC 6.1 6.8 D RBC 4.76 4.38 L Hgb 13.4 L 12.7 L Hct 42.9 38.8 L MCV 89.9 88.7 MCH 28.1 29.0 MCHC 31.3 L 32.7 RDW 13.5 13.5 Plt Count 270 266 MPV 8.1 8.4 Neut % (Auto) 55.4 65.8 Lymph % (Auto) 28.5 19.8 [place] % (Auto) 4.6 6.3 Eos % (Auto) 11.1 7.6 Baso % (Auto) 0.5 0.5 Neut # (Auto) 3.4 4.5 Lymph # (Auto) 1.7 1.4 [place] # (Auto) 0.3 0.4 Eos # (Auto) 0.7 H 0.5 H Baso # (Auto) 0.0 0.0 PT 11.9 INR 1.11 H Sodium 138 137 Potassium 4.2 4.0 Chloride 107 102 Carbon Dioxide 24 27 Anion Gap 11.2 12.0 BUN 7 L D 11 Creatinine 0.60 L 0.60 L Estimated Creat Clear 129 124 Estimated GFR 144 144 Est GFR ( Amer) 175 175 Glucose 169 H D 132 H D Calcium 8.5 8.8 Total Bilirubin 0.2 AST 40 ALT 38 Alkaline Phosphatase 101 Total Protein 6.5 Albumin 3.2 L Globulin 3.3 H Albumin/Globulin Ratio 1.0 L Vancomycin Trough 9.6 Preliminary micro results at discharge 06/02/23 00:15 Wound Culture - Preliminary Arm,Right DS: Diagnosis Discharge Diagnosis (1) Phlegmon: Status: Acute Code(s): L02.91 - Cutaneous abscess, unspecified (2) Cellulitis and abscess of other specified site: Status: Acute Code(s): L03.818 - Cellulitis of other sites; L02.818 - Cutaneous abscess of other sites (3) IVDU (intravenous drug user): Status: Acute Code(s): F19.90 - Other psychoactive substance use, unspecified, uncomplicated (4) Hypertension: Status: Acute Code(s): I10 - Essential (primary) hypertension Qualifiers: Hypertension type: unspecified Qualified Code(s): I10 - Essential (primary) hypertension Meds Home Medications and Allergies Home Medications Medication Instructions Recorded Confirmed Type atorvastatin 20 mg tablet 20 mg PO DAILY Cholesterol 06/03/23 06/03/23 History gabapentin 400 mg capsule 400 mg PO TID Pain 06/03/23 06/03/23 History amoxicillin 875 mg tablet 875 mg PO BID 7 days #14 tabs 06/04/23 Rx doxycycline hyclate 100 mg capsule 100 mg PO BID 7 days #14 caps 06/04/23 Rx New Prescriptions to Start Prescriptions: amoxicillin Damion Murphy doxycycline hyclate Damion Murphy Allergies Allergy/AdvReac Type Severity Reaction Status Date / Time No Known Allergies Allergy Unverified 10/06/17 14:04 Discharge Plan Disposition Patient Disposition: Home, Self-Care Condition: Good Follow up Plan Follow up with: Dre Wade MD [Primary Care Provider] - 1 week Prescriptions/Medication Reconciliation: New amoxicillin 875 mg tablet 875 mg PO BID 7 Days Qty: 14 0RF doxycycline hyclate 100 mg capsule 100 mg PO BID 7 Days Qty: 14 0RF Continued atorvastatin 20 mg tablet 20 mg PO DAILY Patient Comments: TAKE 1 TABLET BY MOUTH EVERY DAY gabapentin 400 mg capsule 400 mg PO TID Patient Comments: TAKE 1 CAPSULE BY MOUTH THREE TIMES A DAY Problem Reconciliation Problems Reviewed?: Yes Patient Discharge Instructions ACTIVITY: Continue current activity Patient Instructions: Cellulitis, DI for Incision and Drainage of a Skin Abscess Providers Primary Care Provider: Dre Wade Admit Provider: Damion Murphy Attending Provider: Damion Murphy
--- NOTE | 2023-06-04 08:52 | EXP.PHA.CONS ---
Pharmacy Consult Date: 06/04/23 Time: 08:52 Referring provider: DR GARY Reason for Consult:: VANCOMYCIN TROUGH LEVEL OBTAINED Allergies Allergy/AdvReac Type Severity Reaction Status Date / Time No Known Allergies Allergy Unverified 10/06/17 14:04 Home Medications Medication Instructions Recorded Confirmed Type atorvastatin 20 mg tablet 20 mg PO DAILY Cholesterol 06/03/23 06/03/23 History gabapentin 400 mg capsule 400 mg PO TID Pain 06/03/23 06/03/23 History New Prescriptions to Start Prescriptions: Height: 1.7 m Weight: 59.931 kg Laboratory Results:: Laboratory Results - last 24 hr 06/03/23 13:00: WBC 6.8 D, RBC 4.38 L, Hgb 12.7 L, Hct 38.8 L, MCV 88.7, MCH 29.0, MCHC 32.7, RDW 13.5, Plt Count 266, MPV 8.4, Neut % (Auto) 65.8, Lymph % (Auto) 19.8, [place] % (Auto) 6.3, Eos % (Auto) 7.6, Baso % (Auto) 0.5, Neut # (Auto) 4.5, Lymph # (Auto) 1.4, [place] # (Auto) 0.4, Eos # (Auto) 0.5 H, Baso # (Auto) 0.0, PT 11.9, INR 1.11 H, Sodium 137, Potassium 4.0, Chloride 102, Carbon Dioxide 27, Anion Gap 12.0, BUN 11, Creatinine 0.60 L, Estimated Creat Clear 124, Estimated GFR 144, Est GFR ( Amer) 175, Glucose 132 H D, Calcium 8.8, Total Bilirubin 0.2, AST 40, ALT 38, Alkaline Phosphatase 101, Total Protein 6.5, Albumin 3.2 L, Globulin 3.3 H, Albumin/Globulin Ratio 1.0 L 06/04/23 07:40: WBC 6.1, RBC 4.76, Hgb 13.4 L, Hct 42.9, MCV 89.9, MCH 28.1, MCHC 31.3 L, RDW 13.5, Plt Count 270, MPV 8.1, Neut % (Auto) 55.4, Lymph % (Auto) 28.5, [place] % (Auto) 4.6, Eos % (Auto) 11.1, Baso % (Auto) 0.5, Neut # (Auto) 3.4, Lymph # (Auto) 1.7, [place] # (Auto) 0.3, Eos # (Auto) 0.7 H, Baso # (Auto) 0.0, Sodium 138, Potassium 4.2, Chloride 107, Carbon Dioxide 24, Anion Gap 11.2, BUN 7 L D, Creatinine 0.60 L, Estimated Creat Clear 129, Estimated GFR 144, Est GFR ( Amer) 175, Glucose 169 H D, Calcium 8.5, Vancomycin Trough 9.6 Medical History: Medical History (Updated 06/02/23 @ 22:38 by Marc Dangelo APRN) CVA (cerebral vascular accident) Assessment and Plan Assessment and plan all Dx Assessment and Plan for all problems:: Pharmacokinetic dosing service Weight: 59.931 Kilograms Vancomycin single level analysis: Current dose being given: 1000 mg Current dosing interval: 8 hrs Current infusion time (hrs): 2 Single level Trough Data: Trough level obtained: 9.6 mcg/ml Timing of trough - # of hrs before next dose: 0.5 Hrs (06/04/23 07:40) Desired peak: 35 mcg/ml Desired trough: 12.5 mcg/ml Estimated PK Parameters: New rate constant (nighat): 0.166 hr-1 Half-life: 4.18 Hours Vd from levels: 41.95 Liters (0.7 L/kg) CLvanco=?? 6.964 L/hr Estimated New Dose and Interval Recommended dose: 1283.1 mg Recommended interval: 8.2 Hrs Recommendations: Give Vancomycin 1250 mg q 8 hrs. Infuse over 2 hrs Expected Cpeak: 34.5 mcg/mL Expected Ctrough: 12.7 mcg/mL AUC 0-24 /JOANIE Data: JOANIE 0.5 mcg/mL:?? AUC/JOANIE:? 1077.0 JOANIE 1.0 mcg/mL:?? AUC/JOANIE:? 538.5 Thank you for the consult
[2023-06-04] MEDS: VANCOMYCIN/WATER FOR INJ (PEG) 1.25 GM/250 ML PIGGYBACK IV (09:24)
[2023-06-04] MEDS: GABAPENTIN 400MG CAPSULE 400 MG PO (09:25)
[2023-06-04] MEDS: PANTOPRAZOLE 40MG TABLET 40 MG PO (09:25)
[2023-06-04] MEDS: ENOXAPARIN 40MG/0.4ML SYRINGE 40 MG SQ (09:25)
[2023-06-04] MEDS: PHA TO NURSING INSTRUCTION 1 EACH NOTAPPLIC (09:27)
[2023-06-04] MEDS: ACETAMINOPHEN 325MG TAB 650 MG PO (09:29)
--- NOTE | 2023-06-04 10:31 | SW/DCPLANNER ---
This patient will require daily dressing changes. Patient will discharge home and plans to do dressing changes himself at home. Patient's nurse (Louisa) stated that she will educate patient on dressing changes prior to discharge. Patient will discharge home this afternoon.
--- NOTE | 2023-06-04 10:50 | PC.NURSE ---
PROVIDED PT WITH SUPPLIES FOR DRESSING CHANGES AT HOME AND EXPLAINED HOW TO CHANGE HIS DRESSING DAILY. PT VERBALIZED UNDERSTANDING. STATES HE HAS HAD TO DO THIS BEFORE AND KNOW HOW TO DO IT.
--- NOTE | 2023-06-04 11:06 | HMH.PTWOUND ---
Rehab Inpt Wound Evaluation Rehab IP Wound Evaluation Start: 06/03/23 18:26 Freq: ONCE Status: Discharge Protocol: Document 06/04/23 09:00 NAZANIN (Rec: 06/04/23 11:06 NAZANIN [id number]) Rehab PT Wound Assessment Subjective Subjective 47 yowm adm to [facility] with swelling, pain and possible R forearm cellulitis. He reports he is independent with all mobility and ADLs at baseline. He underwent R forearm I&D which has relieved a significant amt of his prior symptoms. Wound Right Posterior Forearm Wound Type Incision Is This a Chronic Wound No Wound Length (cm) 1.3 Wound Width (cm) 0.4 Wound Depth (cm) 0.4 Wound Bed Appearance Beefy Red Wound Margins Description Well Defined Surrounding Tissue Appearance [place] Wound Drainage Description Sanguineous,Serosanguineous Drainage Amount Small Wound Topical Solution/Irrigant Saline Irrigant Packing Type Gauze Packing Strips Primary Dressing Non-Adherent Gauze Pad Wound Secondary Dressing Type Adhering Gauze Roll Wound Debridement Method Gauze Wound Debridement Amount of Tissue Minimal Removed Wound Debridement Result Healthy Tissue Revealed Dressing Change Patient Tolerance Tolerated Well Plan/Recommendation Comment Pt to perform Wet-Dry gauze strip packing with secondary dressing covering once daily at home. Eval Complexity Eval Charge Codes 17959 - High Complexity PHYSICIAN CERTIFICATION: I certify the specified therapy services for Alvarez Aguilar are required, authorized, and reviewed every 30 days.
--- NOTE | 2023-06-08 15:52 | CARE MANAGER ---
Attempted to contact patient x 2 related to hospital discharge. No VM option. MERLE Ram
== END 2023-06-04 10:52 | disposition home or self-care (01) ==
LOC: ER 16:05 → 2ND 21:54
PROVIDERS: Nurse Practitioner Family; Admitting Provider Internal Medicine; Emergency Provider Emergency Medicine; PCP Family Medicine; Visit Provider Internal Medicine
DX: R10.11 Right upper quadrant pain (principal); L02.421 Furuncle of right axilla; F19.90 Other psychoactive substance use, unspecified, uncomplicated; I10 Essential (primary) hypertension; L03.113 Cellulitis of right upper limb
CPT/HCPCS: 10060; 36415; 73201; 80048; 80053; 80202; 85025; 85610; 85651; 86140; 87040; 87070; 87077; 87186; 87205; 99285; G0378; J0131; J2543; J3370; Q9967